=== PATIENT | female | born 1970 | race Caucasian/White ===

== ENCOUNTER 2019-02-13 01:54 | Inpatient (IN) | payer MEDICAID ==
[2019-02-13] VITALS (7 sets, daily range): BP systolic 92–115; BP diastolic 55–87
[~2019-02-13] VITALS: Ht 157.5 cm; Wt 71.5 kg
[2019-02-13 02:55] LABS: BASOPHILS % (AUTO) 0.5 % (0-1); EOSINOPHILS % (AUTO) 0.1 % (0-6); HEMATOCRIT 28.8 % (35.0-45.0); HEMOGLOBIN 9.6 g/dl (12.0-16.0); LYMPHOCYTES # (AUTO) 1.7 X10'3 (1.1-4.8); LYMPHOCYTES % (AUTO) 23.8 % (21-51); MEAN CORPUSCULAR HEMOGLOBIN 30.6 PG (27.0-31.0); MEAN CORPUSCULAR HGB CONC 33.3 g/dL (33.0-36.5); MEAN CORPUSCULAR VOLUME 91.9 FL (78-98); MEAN PLATELET VOLUME 7.9 FL (7.4-10.4); MONOCYTES # (AUTO) 0.6 X10'3 (0-0.9); NEUTROPHILS # (AUTO) 4.9 X10'3 (1.8-7.7); NEUTROPHILS % (AUTO) 67.6 % (42-75); PLATELET COUNT 194 X10'3 (140-440); RED BLOOD COUNT 3.13 X10'6 (4.20-5.60); RED CELL DISTRIBUTION WIDTH 17.6 % (11.5-14.5); WHITE BLOOD COUNT 7.3 X10'3 (4.5-11.0)
--- NOTE | 2019-02-13 03:08 | NUR ---
EKG COMPLETED, LABS DRAWN, PT IS A&OX4 AND COOPERATIVE. PT REPORTS USING METH LAST ON FRIDAY. DENIES ANY IV DRUG USE. DRINKS ETOH DAILY.
[2019-02-13 03:09] LABS: ALANINE AMINOTRANSFERASE 32 U/L (12-78); ALBUMIN 2.5 G/DL (3.4-5.0); ALBUMIN/GLOBULIN RATIO 0.9 (1.1-1.5); ALKALINE PHOSPHATASE 98 IU/L (46-116); ANION GAP 10 (8-16); ASPARTATE AMINO TRANSFERASE 43 U/L (10-37); BILIRUBIN,TOTAL 2.1 MG/DL (0.1-1.0); BLOOD UREA NITROGEN 32 MG/DL (7-18); BUN/CREATININE RATIO 27.6 (6.6-38.0); CALCIUM 7.7 MG/DL (8.5-10.1); CHLORIDE 98 MMOL/L (99-107); CREATININE 1.16 MG/DL (0.40-0.90); GLUCOSE 86 MG/DL (70-104); POTASSIUM 3.8 MMOL/L (3.5-5.1); SODIUM 133 MMOL/L (135-145); TOTAL CARBON DIOXIDE 25.2 MMOL/L (24-32); TOTAL PROTEIN 5.4 G/DL (6.4-8.2); eGFR 50 ML/MIN
[2019-02-13] MEDS ORDERED: pantoprazole 40MG/NS 100ML BAG 100 ML IV SCH ×2 (03:10→06:00)
[2019-02-13 03:30] LABS: INR 1.5 INR; PARTIAL THROMBOPLASTIN TIME 30 SECONDS (22-32); PROTHROMBIN TIME 14.5 SECONDS (9.0-12.0)
[2019-02-13] MEDS ORDERED: LORA10TA7 (03:31)
[2019-02-13] MEDS ORDERED: PANT20TA3 PO (03:31)
[2019-02-13] MEDS ORDERED: LISI-600 (03:31)
[2019-02-13] MEDS ORDERED: ALBU17AE26 (03:32)
[2019-02-13] MEDS ORDERED: magnesium hydroxide 30ml (MOM) UD suspension PO PRN (04:00)
[2019-02-13] MEDS ORDERED: acetaminophen 325mg tablet PO PRN ×2 (04:00)
[2019-02-13] MEDS ORDERED: mag hydrox/Alum hydrox/simeth 30ml oral suspension PO PRN (04:00)
[2019-02-13] MEDS ORDERED: potassium Cl 20 mEq SR tablet PO PRN ×2 (04:00)
[2019-02-13] MEDS ORDERED: ondansetron/PF 4mg/2ml inj IV PRN (04:00)
[2019-02-13] MEDS ORDERED: magnesium Cl slow-release 64mg tablet PO PRN (04:00)
[2019-02-13] MEDS ORDERED: magnesium 2GM in 50ml NS 50 ML IV PRN (04:00)
[2019-02-13] MEDS ORDERED: magnesium 4gm in 100ml NS 100 ML IV PRN (04:00)
[2019-02-13] MEDS ORDERED: potassium Cl 40MEQ/NS 500ml 500 ML IV PRN ×2 (04:00)
--- NOTE | 2019-02-13 04:08 | NUR ---
PT SLEEPING. STABLE VS. AWAITING HOSPITALIST. PROTONIX GTT INFUSING.
[2019-02-13] MEDS ORDERED: thiamine inj. 100 MG in normal saline 100ml IV soln 100 ML IV ONE (04:35)
[2019-02-13] MEDS ORDERED: LORazepam 2 mg/ml vial IV PRN (04:35)
[2019-02-13] MEDS ORDERED: LORazepam 1 MG tablet PO PRN (04:35)
[2019-02-13] MEDS ORDERED: thiamine 100mg/ml 2ml inj. IV ONE (04:50)
[2019-02-13] MEDS: pantoprazole 40MG/NS 100ML BAG 100 ML IV SCH ×4 (04:51→18:52)
--- NOTE | 2019-02-13 06:30 | NUR ---
PATIENT RECEIVED ON A HOSPITAL BED AWAKE,NO REPORTED DISCOMFORT,ASSISTED TO [facility]SC COLLECTED URINE AND SENT TO THE LAB.
[2019-02-13 06:46] LABS: CLARITY,URINE CLEAR (Clear); COLOR,URINE YELLOW (Yellow); GLUCOSE, URINE NEGATIVE (Neg); KETONES,URINE NEGATIVE (Neg); LEUKOCYTE ESTERASE ,URINE NEGATIVE (Neg); NITRITES, URINE NEGATIVE (Neg); OCCULT BLOOD,URINE TRACE-INTACT (Neg); PH,URINE 5.5 (4.8-8.0); PROTEIN,URINE NEGATIVE (Neg); UROBILINOGEN,URINE 0.2 E.U/dL (0.2-1.0)
[2019-02-13 06:48] LABS: UA COLLECTION TYPE CLN CATCH MIDSTREAM
[2019-02-13 06:56] LABS: BACTERIA,URINE FEW /HPF (Neg); MUCUS STRANDS NONE SEEN /LPF (Neg); RBC,URINE 0-2 /HPF (0-2); RENAL CELLS, URINE FEW /HPF; SQUAMOUS EPITHELIAL CELL,UR MODERATE /LPF (FEW); WBC,URINE 0-4 /HPF (0-4)
--- NOTE | 2019-02-13 07:55 | NUR ---
PER DR. COREAS,DR MATHEWS TO DO EKG TODAY.
[2019-02-13] MEDS: K and/or MAG REPLACEMENT MC SCH (08:00)
--- NOTE | 2019-02-13 08:14 | NUR ---
WENDYANA BAG N/A,CALLED JUSTICE AT PHARMACY.
--- NOTE | 2019-02-13 09:04 | NUR ---
STILL AWAITING FOR BANANA BAG,PHARMACY CALLED SPOKE TO BRYCE.
[2019-02-13 09:07] LABS: BASOPHILS # (AUTO) 0.1 X10'3 (0-0.2); BASOPHILS % (AUTO) 0.6 % (0-1); EOSINOPHILS % (AUTO) 0.4 % (0-6); HEMATOCRIT 25.8 % (35.0-45.0); HEMOGLOBIN 8.9 g/dl (12.0-16.0); LYMPHOCYTES # (AUTO) 1.7 X10'3 (1.1-4.8); LYMPHOCYTES % (AUTO) 17.9 % (21-51); MEAN CORPUSCULAR HEMOGLOBIN 31.7 PG (27.0-31.0); MEAN CORPUSCULAR HGB CONC 34.6 g/dL (33.0-36.5); MEAN CORPUSCULAR VOLUME 91.5 FL (78-98); MONOCYTES # (AUTO) 0.9 X10'3 (0-0.9); NEUTROPHILS % (AUTO) 72.1 % (42-75); PLATELET COUNT 181 X10'3 (140-440); RED BLOOD COUNT 2.82 X10'6 (4.20-5.60); RED CELL DISTRIBUTION WIDTH 18.3 % (11.5-14.5); WHITE BLOOD COUNT 9.8 X10'3 (4.5-11.0)
[2019-02-13 09:11] LABS: ALANINE AMINOTRANSFERASE 28 U/L (12-78); ALBUMIN 2.2 G/DL (3.4-5.0); ALBUMIN/GLOBULIN RATIO 0.8 (1.1-1.5); ALKALINE PHOSPHATASE 90 IU/L (46-116); ANION GAP 9 (8-16); ASPARTATE AMINO TRANSFERASE 37 U/L (10-37); BILIRUBIN,TOTAL 2.2 MG/DL (0.1-1.0); BLOOD UREA NITROGEN 32 MG/DL (7-18); BUN/CREATININE RATIO 28.3 (6.6-38.0); CALCIUM 7.5 MG/DL (8.5-10.1); CHLORIDE 100 MMOL/L (99-107); CREATININE 1.13 MG/DL (0.40-0.90); GLUCOSE 82 MG/DL (70-104); POTASSIUM 3.7 MMOL/L (3.5-5.1); SODIUM 134 MMOL/L (135-145); TOTAL CARBON DIOXIDE 25.5 MMOL/L (24-32); TOTAL PROTEIN 4.8 G/DL (6.4-8.2); eGFR 51 ML/MIN
[2019-02-13] MEDS: folic acid inj. 2 MG, thiamine inj. 100 MG, MVI, adult No.4 with vit. K 10 ML in dextro... IV SCH ×4 (09:13)
--- NOTE | 2019-02-13 09:32 | NUR ---
PATIENT TO GI LAB.
[2019-02-13] MEDS ORDERED: fentaNYL/PF 50MCG/1 ML 2ML syringe ONE (10:01)
[2019-02-13] MEDS ORDERED: MIDAZolam 5mg/5ml vial ONE (10:01)
[2019-02-13] MEDS ORDERED: LIDOcaine Viscous 15ml cup ONE (10:01)
--- NOTE | 2019-02-13 12:26 | NUR ---
BACK FROM GI LAB. MICHAELA AKERS GI LAB NURSE, STATES PT HAD A BM BEFORE PROCEDURE. BM 500CC BRIGHT RED BLOOD. NO CLOTS.
--- NOTE | 2019-02-13 12:27 | NUR ---
PT IN STABLE CONDITION. PT DROWY
--- NOTE | 2019-02-13 16:10 | NUR ---
ate 100% of clear liquid diet
--- NOTE | 2019-02-13 17:55 | NUR ---
Dr. Griggs notified about patient's draining wounds on her right and left guevara and that we did wound culture. He said to wait for the wound culture result first. I let him know that patient is not on any antibiotic and that she has history of MRSA wound Addendum: 02/13/19 at 1839 by Kt Orozco RN Wound pictures done with patient's permission. Pictures placed in the chart
--- NOTE | 2019-02-13 18:30 | NUR ---
Patient in room [facility] 345. I have received report from Kt kerr and had the opportunity to ask questions and assume patient care.
--- NOTE | 2019-02-13 18:38 | NUR ---
Problems reprioritized. Patient report given, questions answered & plan of care reviewed with Bebo AKERS.
[2019-02-14] VITALS (29 sets, daily range): BP systolic 98–160; BP diastolic 33–96
[2019-02-14] MEDS: pantoprazole 40MG/NS 100ML BAG 100 ML IV SCH ×5 (00:05→21:39)
[2019-02-14] MEDS: HYDROcodone/acetaminophen 5mg/325mg tablet PO PRN ×2 (00:05→21:13)
--- NOTE | 2019-02-14 06:30 | NUR ---
Problems reprioritized. Patient report given, questions answered & plan of care reviewed with Kt AKERS.
--- NOTE | 2019-02-14 06:46 | NUR ---
Patient in room [facility] 345. I have received report from Bebo AKERS and had the opportunity to ask questions and assume patient care.
[2019-02-14] MEDS: folic acid inj. 2 MG, thiamine inj. 100 MG, MVI, adult No.4 with vit. K 10 ML in dextro... IV SCH ×4 (07:23)
[2019-02-14 07:29] LABS: BASOPHILS % (AUTO) 0.5 % (0-1); EOSINOPHILS % (AUTO) 0.4 % (0-6); HEMATOCRIT 22.2 % (35.0-45.0); HEMOGLOBIN 7.5 g/dl (12.0-16.0); LYMPHOCYTES # (AUTO) 1.4 X10'3 (1.1-4.8); LYMPHOCYTES % (AUTO) 19.3 % (21-51); MEAN CORPUSCULAR HEMOGLOBIN 31.5 PG (27.0-31.0); MEAN CORPUSCULAR HGB CONC 33.9 g/dL (33.0-36.5); MEAN PLATELET VOLUME 8.5 FL (7.4-10.4); MONOCYTES # (AUTO) 0.6 X10'3 (0-0.9); MONOCYTES % (AUTO) 8.1 % (2-12); NEUTROPHILS # (AUTO) 5.1 X10'3 (1.8-7.7); NEUTROPHILS % (AUTO) 71.7 % (42-75); PLATELET COUNT 148 X10'3 (140-440); RED BLOOD COUNT 2.39 X10'6 (4.20-5.60); RED CELL DISTRIBUTION WIDTH 18.2 % (11.5-14.5); WHITE BLOOD COUNT 7.1 X10'3 (4.5-11.0)
[2019-02-14 07:41] LABS: ALANINE AMINOTRANSFERASE 23 U/L (12-78); ALBUMIN/GLOBULIN RATIO 0.7 (1.1-1.5); ALKALINE PHOSPHATASE 82 IU/L (46-116); ANION GAP 8 (8-16); ASPARTATE AMINO TRANSFERASE 37 U/L (10-37); BILIRUBIN,TOTAL 1.9 MG/DL (0.1-1.0); BLOOD UREA NITROGEN 31 MG/DL (7-18); CALCIUM 7.3 MG/DL (8.5-10.1); CHLORIDE 101 MMOL/L (99-107); CREATININE 0.97 MG/DL (0.40-0.90); GLUCOSE 81 MG/DL (70-104); MAGNESIUM 1.3 MG/DL (1.5-2.4); PHOSPHORUS 2.5 MG/DL (2.3-4.5); POTASSIUM 3.7 MMOL/L (3.5-5.1); SODIUM 132 MMOL/L (135-145); TOTAL CARBON DIOXIDE 23.1 MMOL/L (24-32); TOTAL PROTEIN 4.8 G/DL (6.4-8.2); eGFR 61 ML/MIN
[2019-02-14] MEDS: K and/or MAG REPLACEMENT MC SCH (08:00)
--- NOTE | 2019-02-14 10:21 | NUR ---
Paged Dr. Griggs regarding Hgb of 7.5 hct of 22.2 this am and 1 episode of bloody stool this am.
--- NOTE | 2019-02-14 11:05 | NUR ---
Dr. Griggs notified about the Hgb of 6.8. Blood transfusion 2 units of PRBC was ordered
[2019-02-14 11:20] LABS: MEAN CORPUSCULAR HEMOGLOBIN 30.8 PG (27.0-31.0); MEAN CORPUSCULAR HGB CONC 33.1 g/dL (33.0-36.5); MEAN CORPUSCULAR VOLUME 92.9 FL (78-98); MEAN PLATELET VOLUME 8.1 FL (7.4-10.4); PLATELET COUNT 153 X10'3 (140-440); RED CELL DISTRIBUTION WIDTH 18.3 % (11.5-14.5)
[2019-02-14 11:35] LABS: HEMATOCRIT 20.4 % (35.0-45.0); HEMOGLOBIN 6.8 g/dl (12.0-16.0)
--- NOTE | 2019-02-14 13:04 | NUR ---
Patients blood started per protocol and MD orders. Agnieszka from GI Lab is here to take patient down for EGD Blood was just started and is running at 70ml's/hr for the first 15 minutes monitoring for reaction. Agnieszka is taking over watching for reaction and will increase rate after 1st 15 min. Kt AKERS is aware.
--- NOTE | 2019-02-14 13:09 | NUR ---
Patient just left her room, went to GI lab. technical support analyst called to let her know
[2019-02-14] MEDS ORDERED: MIDAZolam 5mg/5ml vial ONE (13:27)
[2019-02-14] MEDS ORDERED: fentaNYL/PF 50MCG/1 ML 2ML syringe ONE (13:27)
[2019-02-14] MEDS ORDERED: LIDOcaine Viscous 15ml cup ONE (13:27)
--- NOTE | 2019-02-14 16:50 | NUR ---
Patient just arrived to the room s/p EGD. Patient is drowsy, able to open eyes on command when she arrived, patient hooked to vital sign machine for post-procedure vital signs.
--- NOTE | 2019-02-14 18:47 | NUR ---
Problems reprioritized. Patient report given, questions answered & plan of care reviewed with Laura AKERS.
[2019-02-14 19:57] LABS: HEMOGLOBIN 8.7 g/dl (12.0-16.0); MEAN CORPUSCULAR HEMOGLOBIN 30.5 PG (27.0-31.0); MEAN CORPUSCULAR HGB CONC 33.5 g/dL (33.0-36.5); MEAN CORPUSCULAR VOLUME 91.2 FL (78-98); MEAN PLATELET VOLUME 8.5 FL (7.4-10.4); PLATELET COUNT 141 X10'3 (140-440); RED BLOOD COUNT 2.85 X10'6 (4.20-5.60); RED CELL DISTRIBUTION WIDTH 17.9 % (11.5-14.5); WHITE BLOOD COUNT 6.5 X10'3 (4.5-11.0)
--- NOTE | 2019-02-14 22:07 | NUR ---
Patient in room [facility] 345. I have received report from DELPHINE Meraz and had the opportunity to ask questions and assume patient care. Addendum: 02/14/19 at 2209 by Laura Wong RN Amended: Links added.
[2019-02-15 00:09] VITALS: BP 122/81
[2019-02-15] MEDS: pantoprazole 40MG/NS 100ML BAG 100 ML IV SCH ×5 (02:13→20:12)
[2019-02-15] MEDS ORDERED: morphine 2 MG/ML inj. syringe IV ONE (04:05)
[2019-02-15] MEDS ORDERED: nitroGLYCERIN 0.4mg SUBLingual tab SL PRN (04:05)
[2019-02-15 04:15] VITALS: BP 130/91
[2019-02-15 05:21] LABS: BASOPHILS % (AUTO) 0.3 % (0-1); EOSINOPHILS % (AUTO) 0.1 % (0-6); HEMATOCRIT 28.2 % (35.0-45.0); HEMOGLOBIN 9.5 g/dl (12.0-16.0); LYMPHOCYTES # (AUTO) 0.7 X10'3 (1.1-4.8); LYMPHOCYTES % (AUTO) 8.6 % (21-51); MEAN CORPUSCULAR HGB CONC 33.8 g/dL (33.0-36.5); MEAN CORPUSCULAR VOLUME 91.8 FL (78-98); MEAN PLATELET VOLUME 8.6 FL (7.4-10.4); MONOCYTES # (AUTO) 0.7 X10'3 (0-0.9); MONOCYTES % (AUTO) 9.5 % (2-12); NEUTROPHILS # (AUTO) 6.2 X10'3 (1.8-7.7); NEUTROPHILS % (AUTO) 81.5 % (42-75); PLATELET COUNT 125 X10'3 (140-440); RED BLOOD COUNT 3.08 X10'6 (4.20-5.60); RED CELL DISTRIBUTION WIDTH 16.7 % (11.5-14.5); WHITE BLOOD COUNT 7.7 X10'3 (4.5-11.0)
[2019-02-15 05:40] LABS: ALANINE AMINOTRANSFERASE 26 U/L (12-78); ALBUMIN 1.9 G/DL (3.4-5.0); ALBUMIN/GLOBULIN RATIO 0.7 (1.1-1.5); ALKALINE PHOSPHATASE 81 IU/L (46-116); ANION GAP 12 (8-16); ASPARTATE AMINO TRANSFERASE 44 U/L (10-37); BILIRUBIN,TOTAL 2.3 MG/DL (0.1-1.0); BLOOD UREA NITROGEN 19 MG/DL (7-18); BUN/CREATININE RATIO 21.6 (6.6-38.0); CALCIUM 7.4 MG/DL (8.5-10.1); CHLORIDE 98 MMOL/L (99-107); CREATININE 0.88 MG/DL (0.40-0.90); GLUCOSE 87 MG/DL (70-104); POTASSIUM 3.5 MMOL/L (3.5-5.1); SODIUM 131 MMOL/L (135-145); TOTAL CARBON DIOXIDE 21.4 MMOL/L (24-32); TOTAL PROTEIN 4.5 G/DL (6.4-8.2); eGFR 69 ML/MIN
[2019-02-15 05:44] LABS: MAGNESIUM 1.2 MG/DL (1.5-2.4); PHOSPHORUS 2.3 MG/DL (2.3-4.5); TROPONIN I < 0.04 NG/ML (0.0-0.05)
--- NOTE | 2019-02-15 06:10 | NUR ---
Patient in room [facility] 345. I have received report from DELPHINE García and had the opportunity to ask questions and assume patient care. Patient resting comfortably at this time. Call light and items of frequent use in reach of patient.
--- NOTE | 2019-02-15 06:15 | NUR ---
Problems reprioritized. Patient report given, questions answered & plan of care reviewed with DELPHINE Maurer. Addendum: 02/15/19 at 0616 by Laura Wong RN Amended: Links added.
[2019-02-15 08:00] VITALS: BP_SYST 105; BP_SYST 114; BP_SYST 97; BP_DIAS 67; BP_DIAS 72; BP_DIAS 77; BP_DIAS 78
[2019-02-15] MEDS: K and/or MAG REPLACEMENT MC SCH (08:00)
[2019-02-15] MEDS: folic acid inj. 2 MG, thiamine inj. 100 MG, MVI, adult No.4 with vit. K 10 ML in dextro... IV SCH ×4 (08:38)
[2019-02-15 11:00] VITALS: BP 109/76
[2019-02-15] MEDS: HYDROcodone/acetaminophen 5mg/325mg tablet PO PRN ×3 (13:21→21:16)
[2019-02-15] MEDS: piperacillin/tazo 3.375gm/50ml 50 ML IV SCH ×2 (17:10→23:19)
--- NOTE | 2019-02-15 18:30 | NUR ---
Problems reprioritized. Patient report given, questions answered & plan of care reviewed with DELPHINE García.
--- NOTE | 2019-02-15 18:33 | NUR ---
Patient in room [facility] 345. I have received report from DELPHINE Maurer and had the opportunity to ask questions and assume patient care. Addendum: 02/15/19 at 1834 by Laura Wong RN Amended: Links added.
[2019-02-15 19:18] LABS: HEMATOCRIT 23.7 % (35.0-45.0); HEMOGLOBIN 8.1 g/dl (12.0-16.0); MEAN CORPUSCULAR HEMOGLOBIN 31.4 PG (27.0-31.0); MEAN CORPUSCULAR HGB CONC 34.3 g/dL (33.0-36.5); MEAN CORPUSCULAR VOLUME 91.6 FL (78-98); MEAN PLATELET VOLUME 8.7 FL (7.4-10.4); PLATELET COUNT 109 X10'3 (140-440); RED BLOOD COUNT 2.59 X10'6 (4.20-5.60); RED CELL DISTRIBUTION WIDTH 16.5 % (11.5-14.5); WHITE BLOOD COUNT 8.2 X10'3 (4.5-11.0)
[2019-02-15 20:00] VITALS: BP_SYST 100; BP_SYST 116; BP_SYST 95; BP_DIAS 59; BP_DIAS 69; BP_DIAS 80
[2019-02-15] MEDS ORDERED: piperacillin/tazo 3.375gm/50ml 50 ML IV SCH (20:00)
[2019-02-16] VITALS (8 sets, daily range): BP systolic 82–100; BP diastolic 38–68
[2019-02-16] MEDS: pantoprazole 40MG/NS 100ML BAG 100 ML IV SCH ×5 (02:14→21:42)
[2019-02-16 05:05] LABS: BASOPHILS % (AUTO) 0.2 % (0-1); EOSINOPHILS % (AUTO) 0.2 % (0-6); HEMATOCRIT 24.6 % (35.0-45.0); HEMOGLOBIN 8.4 g/dl (12.0-16.0); LYMPHOCYTES # (AUTO) 0.7 X10'3 (1.1-4.8); LYMPHOCYTES % (AUTO) 6.5 % (21-51); MEAN CORPUSCULAR HEMOGLOBIN 31.7 PG (27.0-31.0); MEAN CORPUSCULAR VOLUME 93.3 FL (78-98); MEAN PLATELET VOLUME 9.2 FL (7.4-10.4); MONOCYTES # (AUTO) 0.7 X10'3 (0-0.9); MONOCYTES % (AUTO) 6.5 % (2-12); NEUTROPHILS # (AUTO) 9.4 X10'3 (1.8-7.7); NEUTROPHILS % (AUTO) 86.6 % (42-75); PLATELET COUNT 127 X10'3 (140-440); RED BLOOD COUNT 2.64 X10'6 (4.20-5.60); RED CELL DISTRIBUTION WIDTH 16.8 % (11.5-14.5); WHITE BLOOD COUNT 10.9 X10'3 (4.5-11.0)
[2019-02-16 05:15] LABS: ALANINE AMINOTRANSFERASE 27 U/L (12-78); ALBUMIN 1.8 G/DL (3.4-5.0); ALBUMIN/GLOBULIN RATIO 0.7 (1.1-1.5); ALKALINE PHOSPHATASE 79 IU/L (46-116); ANION GAP 7 (8-16); ASPARTATE AMINO TRANSFERASE 47 U/L (10-37); BILIRUBIN,TOTAL 1.5 MG/DL (0.1-1.0); BLOOD UREA NITROGEN 16 MG/DL (7-18); BUN/CREATININE RATIO 17.6 (6.6-38.0); CALCIUM 6.8 MG/DL (8.5-10.1); CHLORIDE 100 MMOL/L (99-107); CREATININE 0.91 MG/DL (0.40-0.90); GLUCOSE 85 MG/DL (70-104); MAGNESIUM 1.1 MG/DL (1.5-2.4); PHOSPHORUS 2.2 MG/DL (2.3-4.5); POTASSIUM 3.5 MMOL/L (3.5-5.1); SODIUM 129 MMOL/L (135-145); TOTAL CARBON DIOXIDE 22.5 MMOL/L (24-32); TOTAL PROTEIN 4.3 G/DL (6.4-8.2); eGFR 66 ML/MIN
--- NOTE | 2019-02-16 06:20 | NUR ---
Patient in room [facility] 345. I have received report from DELPHINE García and had the opportunity to ask questions and assume patient care.
--- NOTE | 2019-02-16 06:22 | NUR ---
Problems reprioritized. Patient report given, questions answered & plan of care reviewed with DELPHINE Maurer. Addendum: 02/16/19 at 0622 by Laura Wong RN Amended: Links added.
[2019-02-16] MEDS ORDERED: iohexol 300mg/ml 100ml inj. ONE (07:36)
[2019-02-16] MEDS: piperacillin/tazo 3.375gm/50ml 50 ML IV SCH ×2 (07:37→17:38)
[2019-02-16] MEDS: HYDROcodone/acetaminophen 5mg/325mg tablet PO PRN ×2 (07:42→14:17)
[2019-02-16] MEDS: K and/or MAG REPLACEMENT MC SCH (08:00)
[2019-02-16] MEDS ORDERED: potassium Cl 20 mEq SR tablet PO PRN ×2 (10:40)
[2019-02-16] MEDS: magnesium Cl slow-release 64mg tablet PO PRN ×2 (10:50→18:45)
[2019-02-16] MEDS: folic acid inj. 2 MG, thiamine inj. 100 MG, MVI, adult No.4 with vit. K 10 ML in dextro... IV SCH ×4 (11:51)
[2019-02-16 16:46] LABS: MEAN CORPUSCULAR HEMOGLOBIN 31.4 PG (27.0-31.0); MEAN CORPUSCULAR HGB CONC 33.6 g/dL (33.0-36.5); MEAN CORPUSCULAR VOLUME 93.2 FL (78-98); MEAN PLATELET VOLUME 9.5 FL (7.4-10.4); PLATELET COUNT 115 X10'3 (140-440); RED BLOOD COUNT 2.04 X10'6 (4.20-5.60); RED CELL DISTRIBUTION WIDTH 16.4 % (11.5-14.5); WHITE BLOOD COUNT 12.9 X10'3 (4.5-11.0)
[2019-02-16 16:50] LABS: HEMOGLOBIN 6.4 g/dl (12.0-16.0)
[2019-02-16] MEDS ORDERED: PEG 3350/Na sulf,bicarb,Cl/KCl oral sol 4 liter bottle PO ONE (17:40)
--- NOTE | 2019-02-16 18:30 | NUR ---
Problems reprioritized. Patient report given, questions answered & plan of care reviewed with DELPHINE García. Patient starting golytely prep and resting comfortably at this time. Call light and items of frequent use in reach of patient.
--- NOTE | 2019-02-16 23:29 | NUR ---
Patient in room [facility] 355. I have received report from DELPHINE Diaz and had the opportunity to ask questions and assume patient care. Addendum: 02/16/19 at 2330 by Laura Wong RN Amended: Links added.
[2019-02-17] VITALS (15 sets, daily range): BP systolic 90–140; BP diastolic 50–90
[2019-02-17] MEDS: piperacillin/tazo 3.375gm/50ml 50 ML IV SCH ×4 (00:04→23:58)
[2019-02-17] MEDS: pantoprazole 40MG/NS 100ML BAG 100 ML IV SCH ×5 (02:35→22:11)
[2019-02-17] MEDS ORDERED: morphine 2 MG/ML inj. syringe IV ONE (03:10)
--- NOTE | 2019-02-17 04:32 | NUR ---
timed lab draw for 02/16 @2330 so lab could draw pt d/t pt being edematous and a very hard stick. Lab retimed draw and 2330 h and h was not drawn d/t pt being a hard stick.
[2019-02-17 04:45] LABS: ALANINE AMINOTRANSFERASE 21 U/L (12-78); ALBUMIN 1.4 G/DL (3.4-5.0); ALBUMIN/GLOBULIN RATIO 0.7 (1.1-1.5); ALKALINE PHOSPHATASE 66 IU/L (46-116); ANION GAP 9 (8-16); ASPARTATE AMINO TRANSFERASE 40 U/L (10-37); BLOOD UREA NITROGEN 14 MG/DL (7-18); BUN/CREATININE RATIO 20.6 (6.6-38.0); CALCIUM 6.5 MG/DL (8.5-10.1); CHLORIDE 102 MMOL/L (99-107); CREATININE 0.68 MG/DL (0.40-0.90); GLUCOSE 93 MG/DL (70-104); MAGNESIUM 1.2 MG/DL (1.5-2.4); SODIUM 132 MMOL/L (135-145); TOTAL CARBON DIOXIDE 21.1 MMOL/L (24-32); TOTAL PROTEIN 3.5 G/DL (6.4-8.2); eGFR > 90 ML/MIN
[2019-02-17] MEDS ORDERED: potassium Cl 40MEQ/NS 500ml 500 ML IV PRN (05:00)
[2019-02-17] MEDS ORDERED: potassium Cl 20 mEq SR tablet PO PRN ×2 (05:00)
[2019-02-17] MEDS ORDERED: magnesium 2GM in 50ml NS 50 ML IV PRN (05:00)
[2019-02-17] MEDS: Chloraseptic (Phenol) Spray 177ml MM PRN (05:11)
[2019-02-17] MEDS: potassium Cl 40MEQ/NS 500ml 500 ML IV PRN ×2 (05:25→10:01)
--- NOTE | 2019-02-17 06:21 | NUR ---
Problems reprioritized. Patient report given, questions answered & plan of care reviewed with DELPHINE Hunt. Addendum: 02/17/19 at 0621 by Laura Wong RN Amended: Links added.
[2019-02-17 07:14] LABS: BASOPHILS % (AUTO) 0.2 % (0-1); EOSINOPHILS % (AUTO) 0.2 % (0-6); HEMOGLOBIN 7.3 g/dl (12.0-16.0); LYMPHOCYTES # (AUTO) 0.9 X10'3 (1.1-4.8); LYMPHOCYTES % (AUTO) 8.5 % (21-51); MONOCYTES # (AUTO) 0.6 X10'3 (0-0.9); MONOCYTES % (AUTO) 5.6 % (2-12); NEUTROPHILS # (AUTO) 8.8 X10'3 (1.8-7.7); NEUTROPHILS % (AUTO) 85.5 % (42-75)
[2019-02-17 07:26] LABS: RED BLOOD COUNT 2.39 X10'6 (4.20-5.60); WHITE BLOOD COUNT 10.2 X10'3 (4.5-11.0)
[2019-02-17 07:27] LABS: MEAN CORPUSCULAR HEMOGLOBIN 30.7 PG (27.0-31.0); MEAN CORPUSCULAR VOLUME 87.8 FL (78-98)
[2019-02-17 07:28] LABS: MEAN PLATELET VOLUME 9.2 FL (7.4-10.4); PLATELET COUNT 103 X10'3 (140-440)
[2019-02-17] MEDS: K and/or MAG REPLACEMENT MC SCH (08:00)
--- NOTE | 2019-02-17 09:38 | NUR ---
Extended PIV inserted to the left upper arm cephalic vein x 1 attempt using ultrasound. Irish well Addendum: 02/17/19 at 0943 by Samaria Logan RN Amended: Links added.
[2019-02-17] MEDS: folic acid inj. 2 MG, thiamine inj. 100 MG, MVI, adult No.4 with vit. K 10 ML in dextro... IV SCH ×4 (10:40)
[2019-02-17 11:00] LABS: HEMATOCRIT 23.1 % (35.0-45.0); HEMOGLOBIN 7.7 g/dl (12.0-16.0); MEAN CORPUSCULAR HGB CONC 33.6 g/dL (33.0-36.5); MEAN CORPUSCULAR VOLUME 89.3 FL (78-98); MEAN PLATELET VOLUME 9.3 FL (7.4-10.4); PLATELET COUNT 106 X10'3 (140-440); RED BLOOD COUNT 2.59 X10'6 (4.20-5.60); RED CELL DISTRIBUTION WIDTH 18.1 % (11.5-14.5); WHITE BLOOD COUNT 14.7 X10'3 (4.5-11.0)
[2019-02-17 16:12] LABS: BASOPHILS % (AUTO) 0.2 % (0-1); EOSINOPHILS % (AUTO) 0 % (0-6); HEMATOCRIT 23.9 % (35.0-45.0); HEMOGLOBIN 8.1 g/dl (12.0-16.0); LYMPHOCYTES # (AUTO) 0.9 X10'3 (1.1-4.8); LYMPHOCYTES % (AUTO) 5.3 % (21-51); MEAN CORPUSCULAR HEMOGLOBIN 30.1 PG (27.0-31.0); MEAN CORPUSCULAR HGB CONC 33.9 g/dL (33.0-36.5); MEAN CORPUSCULAR VOLUME 88.9 FL (78-98); MEAN PLATELET VOLUME 9.6 FL (7.4-10.4); MONOCYTES # (AUTO) 0.9 X10'3 (0-0.9); NEUTROPHILS # (AUTO) 15.3 X10'3 (1.8-7.7); NEUTROPHILS % (AUTO) 89.5 % (42-75); PLATELET COUNT 113 X10'3 (140-440); RED BLOOD COUNT 2.69 X10'6 (4.20-5.60); RED CELL DISTRIBUTION WIDTH 18.5 % (11.5-14.5); WHITE BLOOD COUNT 17.1 X10'3 (4.5-11.0)
--- NOTE | 2019-02-17 16:15 | NUR ---
Patient taken to GI lab via .
[2019-02-17] MEDS ORDERED: MIDAZolam 5mg/5ml vial ONE (16:45)
[2019-02-17] MEDS ORDERED: LIDOcaine Viscous 15ml cup ONE (16:45)
[2019-02-17] MEDS ORDERED: fentaNYL/PF 50MCG/1 ML 2ML syringe ONE (16:45)
[2019-02-17] MEDS ORDERED: diphenhydrAMINE 50 mg/ml inj ONE (17:05)
[2019-02-17] MEDS ORDERED: epiNEPHrine 0.1mg/ml 10ml syringe ONE (17:53)
--- NOTE | 2019-02-17 18:33 | NUR ---
Report to DELPHINE Hutchison.
--- NOTE | 2019-02-17 18:50 | NUR ---
Patient return from GI lab. Patient oxygen desated down to 70's in room air. 2L n/c applied patient sats went back up to 95% 2L. VSS. will continue with care.
[2019-02-17] MEDS: normal saline 1000ml 1,000 ML IV SCH (19:40)
[2019-02-17] MEDS: lactobacillus rhamnosus 10,000 MMU CELLS/CAPSULE PO SCH (20:00)
[2019-02-17 20:31] LABS: BASOPHILS % (AUTO) 0.3 % (0-1); EOSINOPHILS % (AUTO) 0.1 % (0-6); HEMOGLOBIN 7.9 g/dl (12.0-16.0); LYMPHOCYTES # (AUTO) 0.7 X10'3 (1.1-4.8); LYMPHOCYTES % (AUTO) 4.6 % (21-51); MEAN CORPUSCULAR HEMOGLOBIN 30.7 PG (27.0-31.0); MEAN CORPUSCULAR HGB CONC 34.4 g/dL (33.0-36.5); MEAN CORPUSCULAR VOLUME 89.4 FL (78-98); MEAN PLATELET VOLUME 9.5 FL (7.4-10.4); MONOCYTES # (AUTO) 0.6 X10'3 (0-0.9); MONOCYTES % (AUTO) 4.1 % (2-12); NEUTROPHILS # (AUTO) 13.1 X10'3 (1.8-7.7); NEUTROPHILS % (AUTO) 90.9 % (42-75); PLATELET COUNT 111 X10'3 (140-440); RED BLOOD COUNT 2.57 X10'6 (4.20-5.60); RED CELL DISTRIBUTION WIDTH 18.3 % (11.5-14.5); WHITE BLOOD COUNT 14.4 X10'3 (4.5-11.0)
--- NOTE | 2019-02-17 22:00 | NUR ---
Report given to CICU nurse Johnnie AKERS. All belongings and medications sent with patient.
--- NOTE | 2019-02-17 23:22 | NUR ---
Patient transferred to CICU from surgical. Patient A&OX3, very sleepy but responds appropriately. Vitals WNL. Mottling noted on lower extremities up to mid-thigh. aware.
[2019-02-18] VITALS (25 sets, daily range): BP systolic 85–133; BP diastolic 40–91
[2019-02-18 02:21] LABS: BASOPHILS % (AUTO) 0.1 % (0-1); EOSINOPHILS % (AUTO) 0 % (0-6); HEMATOCRIT 23.2 % (35.0-45.0); HEMOGLOBIN 7.7 g/dl (12.0-16.0); LYMPHOCYTES # (AUTO) 0.9 X10'3 (1.1-4.8); LYMPHOCYTES % (AUTO) 6.7 % (21-51); MEAN CORPUSCULAR HEMOGLOBIN 29.9 PG (27.0-31.0); MEAN CORPUSCULAR HGB CONC 33.3 g/dL (33.0-36.5); MEAN CORPUSCULAR VOLUME 89.9 FL (78-98); MEAN PLATELET VOLUME 9.2 FL (7.4-10.4); MONOCYTES # (AUTO) 0.5 X10'3 (0-0.9); MONOCYTES % (AUTO) 3.5 % (2-12); NEUTROPHILS # (AUTO) 11.6 X10'3 (1.8-7.7); NEUTROPHILS % (AUTO) 89.7 % (42-75); PLATELET COUNT 118 X10'3 (140-440); RED BLOOD COUNT 2.59 X10'6 (4.20-5.60)
[2019-02-18 02:23] LABS: ANISOCYTOSIS 2+; PLATELET ESTIMATE DECREASED
[2019-02-18 02:36] LABS: ALANINE AMINOTRANSFERASE 30 U/L (12-78); ALBUMIN 1.5 G/DL (3.4-5.0); ALBUMIN/GLOBULIN RATIO 0.6 (1.1-1.5); ALKALINE PHOSPHATASE 71 IU/L (46-116); ANION GAP 6 (8-16); ASPARTATE AMINO TRANSFERASE 47 U/L (10-37); BILIRUBIN,TOTAL 1.4 MG/DL (0.1-1.0); BLOOD UREA NITROGEN 9 MG/DL (7-18); BUN/CREATININE RATIO 12.5 (6.6-38.0); CALCIUM 6.8 MG/DL (8.5-10.1); CHLORIDE 105 MMOL/L (99-107); CREATININE 0.72 MG/DL (0.40-0.90); GLUCOSE 99 MG/DL (70-104); MAGNESIUM 1.2 MG/DL (1.5-2.4); PHOSPHORUS 2.4 MG/DL (2.3-4.5); POTASSIUM 3.5 MMOL/L (3.5-5.1); SODIUM 134 MMOL/L (135-145); TOTAL CARBON DIOXIDE 23.2 MMOL/L (24-32); TOTAL PROTEIN 4.1 G/DL (6.4-8.2); eGFR 86 ML/MIN
[2019-02-18 02:42] LABS: INR 1.1 INR; PARTIAL THROMBOPLASTIN TIME 32 SECONDS (22-32); PROTHROMBIN TIME 10.9 SECONDS (9.0-12.0)
[2019-02-18] MEDS: pantoprazole 40MG/NS 100ML BAG 100 ML IV SCH ×5 (03:40→21:17)
[2019-02-18] MEDS: HYDROcodone/acetaminophen 5mg/325mg tablet PO PRN (04:22)
[2019-02-18] MEDS: Chloraseptic (Phenol) Spray 177ml MM PRN (04:25)
--- NOTE | 2019-02-18 06:30 | NUR ---
Patient in room CICU 2011. I have received report from DELPHINE Blair and had the opportunity to ask questions and assume patient care.
[2019-02-18] MEDS: lactobacillus rhamnosus 10,000 MMU CELLS/CAPSULE PO SCH ×2 (07:32→19:14)
[2019-02-18] MEDS: piperacillin/tazo 3.375gm/50ml 50 ML IV SCH ×2 (07:42→15:43)
[2019-02-18] MEDS: K and/or MAG REPLACEMENT MC SCH (07:43)
[2019-02-18] MEDS: folic acid inj. 2 MG, thiamine inj. 100 MG, MVI, adult No.4 with vit. K 10 ML in dextro... IV SCH ×4 (08:00)
[2019-02-18 09:16] LABS: MEAN CORPUSCULAR HEMOGLOBIN 30.8 PG (27.0-31.0); MEAN CORPUSCULAR HGB CONC 34.4 g/dL (33.0-36.5); MEAN CORPUSCULAR VOLUME 89.6 FL (78-98); MEAN PLATELET VOLUME 9.5 FL (7.4-10.4); PLATELET COUNT 110 X10'3 (140-440); RED BLOOD COUNT 2.21 X10'6 (4.20-5.60); RED CELL DISTRIBUTION WIDTH 18.8 % (11.5-14.5); WHITE BLOOD COUNT 11.4 X10'3 (4.5-11.0)
--- NOTE | 2019-02-18 09:20 | NUR ---
Notified Dr Kohli of the critical H/H just received and was given orders to make her NPO and give a unit of blood. States he will be calling Dr Almazan.
[2019-02-18 09:24] LABS: HEMATOCRIT 19.8 % (35.0-45.0); HEMOGLOBIN 6.8 g/dl (12.0-16.0)
--- NOTE | 2019-02-18 10:30 | NUR ---
Critical care rounds: Discussed pt status with MD and team. Given full systems update. Discussed need for more invasive intervention to resolve bleeding seeing as the H/H continues to drop post EGD. Low UO and slightly hypotensive - given orders for liter bolus as well as the unit of blood about to be transfused. PICC line orders received, unable to draw from extended. Protonix drip running, blood cultures addressed. Made NPO.
[2019-02-18] MEDS ORDERED: normal saline 1000ml 1,000 ML IVB ONE (10:43)
[2019-02-18] MEDS: normal saline 1000ml 1,000 ML IV SCH (10:44)
--- NOTE | 2019-02-18 12:00 | NUR ---
Called Dr Kohli to request pain medicine now that patient is NPO. Orders received for morphine. Pt has 10/10 pain, writhing around in bed, groaning, begging for pain to stop.
[2019-02-18] MEDS: morphine 4 MG/ML inj SYRINge IV PRN ×2 (12:33→19:28)
--- NOTE | 2019-02-18 12:55 | NUR ---
Dr Wagner at bedside discussing procedure with patient.
--- NOTE | 2019-02-18 12:58 | NUR ---
Initial: patient admitted with upper GI bleed, s/p 3 EGD and 1 colonoscopy d/t duodenal ulcer which was cauterized. H/o chronic EtOH, was receiving banana bag. She is on clear liquid diet, day 5. Will follow and monitor for diet advancement. Recommend: 1. Advance diet as medically indicated to regular 2. Weight per rx Addendum: 02/18/19 at [address] Amended: Links added.
[2019-02-18] MEDS ORDERED: LIDOcaine 1%/PF 5ML 10 MG/ML VIAL ONE (13:11)
[2019-02-18] MEDS ORDERED: iohexol 300mg/ml 100ml inj. ONE (13:11)
[2019-02-18] MEDS ORDERED: heparin 1,000 UNITS/NS 500ml 500 ML ONE (13:11)
--- NOTE | 2019-02-18 13:33 | NUR ---
Pt left with IR staff for procedure.
[2019-02-18] MEDS ORDERED: heparin 1,000 UNITS/NS 500ml 500 ML ICATH ONE (13:55)
[2019-02-18] MEDS ORDERED: LIDOcaine 1%/PF 5ML 10 MG/ML VIAL SQ ONE (13:55)
[2019-02-18] MEDS ORDERED: fentaNYL/PF 50MCG/1 ML 2ML syringe IV PRN (13:55)
[2019-02-18] MEDS ORDERED: midazolam 2 mg/2 ml injection IV PRN (13:55)
--- NOTE | 2019-02-18 15:15 | NUR ---
Pt brought back to room by IR staff, who state pt needs to be flat for 4 hours due to starclose. Pt more alert than prior to procedure, seems more comfortable, and is able to answer questions. VSS, monitor shows SR, but still difficult to get a pleth on any of her fingers or ears for O2 sat. Will attempt to warm up extremities and continue to monitor, still on 2L O2 but showing now signs of SOB.
[2019-02-18 16:59] LABS: BASOPHILS % (AUTO) 0.1 % (0-1); EOSINOPHILS % (AUTO) 0.4 % (0-6); HEMOGLOBIN 8.1 g/dl (12.0-16.0); LYMPHOCYTES # (AUTO) 0.7 X10'3 (1.1-4.8); LYMPHOCYTES % (AUTO) 8.4 % (21-51); MEAN CORPUSCULAR HEMOGLOBIN 30.3 PG (27.0-31.0); MEAN CORPUSCULAR HGB CONC 33.7 g/dL (33.0-36.5); MEAN CORPUSCULAR VOLUME 89.8 FL (78-98); MEAN PLATELET VOLUME 9.3 FL (7.4-10.4); MONOCYTES # (AUTO) 0.4 X10'3 (0-0.9); MONOCYTES % (AUTO) 5.3 % (2-12); NEUTROPHILS # (AUTO) 6.9 X10'3 (1.8-7.7); NEUTROPHILS % (AUTO) 85.8 % (42-75); PLATELET COUNT 111 X10'3 (140-440); RED BLOOD COUNT 2.68 X10'6 (4.20-5.60); RED CELL DISTRIBUTION WIDTH 17.1 % (11.5-14.5)
[2019-02-18] MEDS: morphine 2 MG/ML inj. syringe IV PRN (17:42)
--- NOTE | 2019-02-18 18:39 | NUR ---
1830..Patient in room CICU 2011. I have received report from Dionna AKERS and had the opportunity to ask questions and assume patient care.
[2019-02-18 22:08] LABS: BASOPHILS % (AUTO) 0.2 % (0-1); EOSINOPHILS % (AUTO) 0.2 % (0-6); HEMATOCRIT 24.3 % (35.0-45.0); HEMOGLOBIN 8.3 g/dl (12.0-16.0); LYMPHOCYTES # (AUTO) 0.6 X10'3 (1.1-4.8); LYMPHOCYTES % (AUTO) 6.9 % (21-51); MEAN CORPUSCULAR HEMOGLOBIN 30.6 PG (27.0-31.0); MEAN CORPUSCULAR HGB CONC 34.2 g/dL (33.0-36.5); MEAN CORPUSCULAR VOLUME 89.6 FL (78-98); MEAN PLATELET VOLUME 9.5 FL (7.4-10.4); MONOCYTES # (AUTO) 0.6 X10'3 (0-0.9); MONOCYTES % (AUTO) 6.2 % (2-12); NEUTROPHILS # (AUTO) 7.9 X10'3 (1.8-7.7); NEUTROPHILS % (AUTO) 86.5 % (42-75); PLATELET COUNT 112 X10'3 (140-440); RED BLOOD COUNT 2.71 X10'6 (4.20-5.60); RED CELL DISTRIBUTION WIDTH 17.3 % (11.5-14.5); WHITE BLOOD COUNT 9.1 X10'3 (4.5-11.0)
[2019-02-19] VITALS (24 sets, daily range): BP systolic 103–133; BP diastolic 60–88
[2019-02-19] MEDS: piperacillin/tazo 3.375gm/50ml 50 ML IV SCH ×3 (00:35→16:31)
--- NOTE | 2019-02-19 00:38 | NUR ---
1999..Assessment as noted, medicated with morphine for complaints of pain with good effect. Right groin stable, no bleeding or hematoma noted, distal pulses intact.
--- NOTE | 2019-02-19 00:41 | NUR ---
0000..No changes noted.
[2019-02-19] MEDS: pantoprazole 40MG/NS 100ML BAG 100 ML IV SCH ×5 (01:45→20:58)
[2019-02-19 02:14] LABS: BASOPHILS % (AUTO) 0.3 % (0-1); EOSINOPHILS % (AUTO) 0.2 % (0-6); HEMOGLOBIN 8.3 g/dl (12.0-16.0); LYMPHOCYTES # (AUTO) 0.6 X10'3 (1.1-4.8); LYMPHOCYTES % (AUTO) 8.6 % (21-51); MEAN CORPUSCULAR HEMOGLOBIN 30.1 PG (27.0-31.0); MEAN CORPUSCULAR HGB CONC 33.3 g/dL (33.0-36.5); MEAN CORPUSCULAR VOLUME 90.5 FL (78-98); MEAN PLATELET VOLUME 9.4 FL (7.4-10.4); MONOCYTES # (AUTO) 0.6 X10'3 (0-0.9); MONOCYTES % (AUTO) 7.9 % (2-12); PLATELET COUNT 121 X10'3 (140-440); RED BLOOD COUNT 2.76 X10'6 (4.20-5.60); RED CELL DISTRIBUTION WIDTH 17.6 % (11.5-14.5); WHITE BLOOD COUNT 7.2 X10'3 (4.5-11.0)
[2019-02-19 02:25] LABS: ALANINE AMINOTRANSFERASE 26 U/L (12-78); ALBUMIN 1.4 G/DL (3.4-5.0); ALBUMIN/GLOBULIN RATIO 0.6 (1.1-1.5); ALKALINE PHOSPHATASE 64 IU/L (46-116); ANION GAP 7 (8-16); ASPARTATE AMINO TRANSFERASE 42 U/L (10-37); BILIRUBIN,TOTAL 1.5 MG/DL (0.1-1.0); BLOOD UREA NITROGEN 8 MG/DL (7-18); BUN/CREATININE RATIO 11.4 (6.6-38.0); CALCIUM 7.2 MG/DL (8.5-10.1); CHLORIDE 108 MMOL/L (99-107); GLUCOSE 93 MG/DL (70-104); MAGNESIUM 1.1 MG/DL (1.5-2.4); PHOSPHORUS 2.5 MG/DL (2.3-4.5); POTASSIUM 3.5 MMOL/L (3.5-5.1); SODIUM 136 MMOL/L (135-145); TOTAL CARBON DIOXIDE 20.7 MMOL/L (24-32); TOTAL PROTEIN 3.9 G/DL (6.4-8.2); eGFR 89 ML/MIN
--- NOTE | 2019-02-19 04:38 | NUR ---
0400..No changes noted.
[2019-02-19] MEDS: normal saline 1000ml 1,000 ML IV SCH ×2 (06:20→22:40)
--- NOTE | 2019-02-19 06:26 | NUR ---
0625..Problems reprioritized. Patient report given, questions answered & plan of care reviewed with Apolonia AKERS.
[2019-02-19] MEDS: morphine 2 MG/ML inj. syringe IV PRN (07:52)
[2019-02-19] MEDS: folic acid inj. 2 MG, thiamine inj. 100 MG, MVI, adult No.4 with vit. K 10 ML in dextro... IV SCH ×4 (07:52)
[2019-02-19] MEDS: lactobacillus rhamnosus 10,000 MMU CELLS/CAPSULE PO SCH ×2 (07:55→20:58)
[2019-02-19] MEDS: K and/or MAG REPLACEMENT MC SCH (08:00)
[2019-02-19 08:40] LABS: BASOPHILS % (AUTO) 0.1 % (0-1); EOSINOPHILS % (AUTO) 0 % (0-6); HEMOGLOBIN 7.2 g/dl (12.0-16.0); LYMPHOCYTES # (AUTO) 0.6 X10'3 (1.1-4.8); LYMPHOCYTES % (AUTO) 10.6 % (21-51); MEAN CORPUSCULAR HEMOGLOBIN 30.5 PG (27.0-31.0); MEAN CORPUSCULAR HGB CONC 33.6 g/dL (33.0-36.5); MEAN CORPUSCULAR VOLUME 90.9 FL (78-98); MEAN PLATELET VOLUME 9.6 FL (7.4-10.4); MONOCYTES # (AUTO) 0.5 X10'3 (0-0.9); MONOCYTES % (AUTO) 9.1 % (2-12); NEUTROPHILS # (AUTO) 4.2 X10'3 (1.8-7.7); NEUTROPHILS % (AUTO) 80.2 % (42-75); PLATELET COUNT 110 X10'3 (140-440); RED BLOOD COUNT 2.36 X10'6 (4.20-5.60); WHITE BLOOD COUNT 5.2 X10'3 (4.5-11.0)
[2019-02-19 08:55] LABS: HEMATOCRIT 21.4 % (35.0-45.0)
[2019-02-19 12:18] LABS: BASOPHILS % (AUTO) 0.1 % (0-1); EOSINOPHILS % (AUTO) 0.2 % (0-6); HEMATOCRIT 23.6 % (35.0-45.0); LYMPHOCYTES # (AUTO) 0.7 X10'3 (1.1-4.8); LYMPHOCYTES % (AUTO) 10.7 % (21-51); MEAN CORPUSCULAR HEMOGLOBIN 30.9 PG (27.0-31.0); MEAN CORPUSCULAR VOLUME 90.7 FL (78-98); MEAN PLATELET VOLUME 9.5 FL (7.4-10.4); MONOCYTES # (AUTO) 0.6 X10'3 (0-0.9); MONOCYTES % (AUTO) 8.7 % (2-12); NEUTROPHILS # (AUTO) 5.4 X10'3 (1.8-7.7); NEUTROPHILS % (AUTO) 80.3 % (42-75); PLATELET COUNT 119 X10'3 (140-440); RED CELL DISTRIBUTION WIDTH 18.4 % (11.5-14.5); WHITE BLOOD COUNT 6.7 X10'3 (4.5-11.0)
[2019-02-19] MEDS: morphine 4 MG/ML inj SYRINge IV PRN (16:28)
--- NOTE | 2019-02-19 18:19 | NUR ---
Problems reprioritized. Patient report given, questions answered & plan of care reviewed with Venus AKERS.
[2019-02-20] VITALS (15 sets, daily range): BP systolic 94–125; BP diastolic 54–85
[2019-02-20] MEDS: piperacillin/tazo 3.375gm/50ml 50 ML IV SCH ×4 (00:24→23:26)
[2019-02-20] MEDS: morphine 4 MG/ML inj SYRINge IV PRN (00:33)
[2019-02-20] MEDS: pantoprazole 40MG/NS 100ML BAG 100 ML IV SCH ×2 (02:41→09:18)
--- NOTE | 2019-02-20 05:31 | NUR ---
1830....Received report from Dalton Byrd RN.
--- NOTE | 2019-02-20 05:31 | NUR ---
1999...Assessment noted. No active bleeding. Denies pain/discomfort.
--- NOTE | 2019-02-20 05:33 | NUR ---
0000... No changes.Sleeping for long intervals.
--- NOTE | 2019-02-20 05:35 | NUR ---
0400... No changes. Bilateral leg pain relieved with morphine. No distress.
[2019-02-20 06:13] LABS: BASOPHILS % (AUTO) 0.2 % (0-1); EOSINOPHILS % (AUTO) 0.1 % (0-6); HEMATOCRIT 22.6 % (35.0-45.0); HEMOGLOBIN 7.6 g/dl (12.0-16.0); LYMPHOCYTES # (AUTO) 1.1 X10'3 (1.1-4.8); LYMPHOCYTES % (AUTO) 13.2 % (21-51); MEAN CORPUSCULAR HEMOGLOBIN 30.2 PG (27.0-31.0); MEAN CORPUSCULAR HGB CONC 33.5 g/dL (33.0-36.5); MEAN CORPUSCULAR VOLUME 90.1 FL (78-98); MEAN PLATELET VOLUME 9.2 FL (7.4-10.4); MONOCYTES # (AUTO) 0.8 X10'3 (0-0.9); MONOCYTES % (AUTO) 9.1 % (2-12); NEUTROPHILS # (AUTO) 6.7 X10'3 (1.8-7.7); NEUTROPHILS % (AUTO) 77.4 % (42-75); PLATELET COUNT 134 X10'3 (140-440); RED BLOOD COUNT 2.51 X10'6 (4.20-5.60); RED CELL DISTRIBUTION WIDTH 18.6 % (11.5-14.5); WHITE BLOOD COUNT 8.6 X10'3 (4.5-11.0)
[2019-02-20 06:21] LABS: MAGNESIUM 1.1 MG/DL (1.5-2.4); POTASSIUM 3.4 MMOL/L (3.5-5.1)
--- NOTE | 2019-02-20 06:30 | NUR ---
Patient in room CICU 2011. I have received report from Venus Carlos RN and had the opportunity to ask questions and assume patient care.
--- NOTE | 2019-02-20 06:34 | NUR ---
Problems reprioritized. Patient report given, questions answered & plan of care reviewed with Taye RN day shift.
[2019-02-20 07:04] LABS: ANISOCYTOSIS 2+; BURR CELLS 2+; PLATELET ESTIMATE DECREASED; SCHISTOCYTES FEW
[2019-02-20 07:05] LABS: POLYCHROMASIA FEW
[2019-02-20] MEDS: K and/or MAG REPLACEMENT MC SCH (08:00)
[2019-02-20] MEDS: morphine 2 MG/ML inj. syringe IV PRN ×2 (09:01→21:40)
[2019-02-20] MEDS: thiamine 100mg tablet PO SCH (09:19)
[2019-02-20] MEDS: multivitamins, therapeutics tablet PO SCH (09:19)
[2019-02-20] MEDS: lactobacillus rhamnosus 10,000 MMU CELLS/CAPSULE PO SCH ×2 (09:19→21:10)
[2019-02-20] MEDS: folic acid 1mg tablet PO SCH (09:19)
--- NOTE | 2019-02-20 10:20 | NUR ---
1013 URINE CATHETER REMOVED Patient was noted to have urine leaking around catheter. Patient tolerated removal.
[2019-02-20] MEDS ORDERED: potassium Cl 20 mEq SR tablet PO PRN (11:00)
[2019-02-20] MEDS: HYDROcodone/acetaminophen 5mg/325mg tablet PO PRN ×3 (11:32→21:13)
[2019-02-20] MEDS: magnesium Cl slow-release 64mg tablet PO PRN ×2 (11:34→21:10)
[2019-02-20] MEDS: potassium Cl 20 mEq SR tablet PO PRN ×3 (11:34→21:10)
--- NOTE | 2019-02-20 12:59 | NUR ---
reassessment: Pt advanced to full liquids this AM s/p 7 days clears w/ 50-75% avg PO still not meeting needs. S/p gastroduodenal artery embolization per MD note. LBM 02/17 currently w/ abdominal pain. On MVI/thiamin, folic for etoh hx. Ensure Enlive TIDWM added for additional protein/energy needs given extended period on clears. Will continue to monitor for additional protein needs. Recommend: 1. Advance diet as medically indicated to regular 2. ensure enlive TIDWM 3. Weight per rx Addendum: 02/20/19 at [address] Amended: Links added.
[2019-02-20] MEDS: lactose-reduced food (Ensure Enlive) - 237ml bottle PO SCH ×2 (13:00→18:00)
[2019-02-20 16:45] LABS: HEMATOCRIT 27.1 % (35.0-45.0); HEMOGLOBIN 9.1 g/dl (12.0-16.0); MEAN CORPUSCULAR HEMOGLOBIN 29.1 PG (27.0-31.0); MEAN CORPUSCULAR HGB CONC 33.4 g/dL (33.0-36.5); MEAN CORPUSCULAR VOLUME 87.1 FL (78-98); MEAN PLATELET VOLUME 9.2 FL (7.4-10.4); PLATELET COUNT 143 X10'3 (140-440); RED BLOOD COUNT 3.11 X10'6 (4.20-5.60); RED CELL DISTRIBUTION WIDTH 20.1 % (11.5-14.5); WHITE BLOOD COUNT 10.9 X10'3 (4.5-11.0)
--- NOTE | 2019-02-20 17:05 | NUR ---
Report given to Ina AKERS. Addendum: 02/20/19 at 1724 by Alessandra Floyd RN Patient in room 360A. Chart and all belongings sent with patient as well as medications. Ina AKERS there to receive the patient.
--- NOTE | 2019-02-20 17:05 | NUR ---
Patient in room CICU 2011. I have received report from DELPHINE Aparicio and had the opportunity to ask questions and assume patient care.
--- NOTE | 2019-02-20 18:40 | NUR ---
Problems reprioritized. Patient report given, questions answered & plan of care reviewed with DELPHINE Vega.
--- NOTE | 2019-02-20 18:41 | NUR ---
Patient in room [facility] 360. I have received report from DELPHINE Buckley and had the opportunity to ask questions and assume patient care.
[2019-02-20] MEDS: pantoprazole 40mg Tablet.DR PO SCH (21:11)
[2019-02-21] VITALS: BP 91/65
[2019-02-21 06:33] LABS: BASOPHILS % (AUTO) 0.3 % (0-1); EOSINOPHILS # (AUTO) 0.1 X10'3 (0-0.9); EOSINOPHILS % (AUTO) 0.6 % (0-6); HEMATOCRIT 27.3 % (35.0-45.0); LYMPHOCYTES # (AUTO) 1.7 X10'3 (1.1-4.8); LYMPHOCYTES % (AUTO) 15.6 % (21-51); MEAN CORPUSCULAR HEMOGLOBIN 29.3 PG (27.0-31.0); MEAN CORPUSCULAR HGB CONC 33.1 g/dL (33.0-36.5); MEAN CORPUSCULAR VOLUME 88.4 FL (78-98); MEAN PLATELET VOLUME 9.3 FL (7.4-10.4); MONOCYTES % (AUTO) 9.5 % (2-12); NEUTROPHILS # (AUTO) 7.9 X10'3 (1.8-7.7); PLATELET COUNT 165 X10'3 (140-440); RED BLOOD COUNT 3.09 X10'6 (4.20-5.60); WHITE BLOOD COUNT 10.6 X10'3 (4.5-11.0)
--- NOTE | 2019-02-21 06:33 | NUR ---
Problems reprioritized. Patient report given, questions answered & plan of care reviewed with DELPHINE Baltazar.
[2019-02-21 06:46] LABS: POTASSIUM 4.4 MMOL/L (3.5-5.1)
[2019-02-21 07:42] LABS: ANISOCYTOSIS 3+; PLATELET ESTIMATE NORMAL
[2019-02-21 07:43] LABS: LARGE PLATELETS FEW; POIKILOCYTOSIS 1+; POLYCHROMASIA 2+
[2019-02-21 08:00] VITALS: BP 111/67
[2019-02-21] MEDS: K and/or MAG REPLACEMENT MC SCH (08:00)
[2019-02-21] MEDS: piperacillin/tazo 3.375gm/50ml 50 ML IV SCH ×3 (08:11→23:37)
[2019-02-21] MEDS: lactobacillus rhamnosus 10,000 MMU CELLS/CAPSULE PO SCH ×2 (08:12→19:43)
[2019-02-21] MEDS: folic acid 1mg tablet PO SCH (08:12)
[2019-02-21] MEDS: thiamine 100mg tablet PO SCH (08:12)
[2019-02-21] MEDS: pantoprazole 40mg Tablet.DR PO SCH ×2 (08:13→19:43)
[2019-02-21] MEDS: multivitamins, therapeutics tablet PO SCH (08:13)
[2019-02-21] MEDS: HYDROcodone/acetaminophen 5mg/325mg tablet PO PRN ×2 (08:18→19:43)
[2019-02-21] MEDS: lactose-reduced food (Ensure Enlive) - 237ml bottle PO SCH ×3 (08:23→18:05)
[2019-02-21] MEDS ORDERED: magnesium Cl slow-release 64mg tablet PO PRN (09:45)
[2019-02-21] MEDS ORDERED: potassium Cl 40MEQ/NS 500ml 500 ML IV PRN ×2 (09:45)
[2019-02-21] MEDS ORDERED: potassium Cl 20 mEq SR tablet PO PRN ×2 (09:45)
[2019-02-21] MEDS ORDERED: magnesium 4gm in 100ml NS 100 ML IV PRN (09:45)
[2019-02-21 12:00] VITALS: BP 115/67
--- NOTE | 2019-02-21 16:16 | NUR ---
Nutrition consult: Unsure of consult specifics, pt 50% avg heart healthy meals w/ ensure enlive TIDWM added yesterday w/ no severe edema/wounds present and does not qualify for malnutrition. No hx DM. Will continue to monitor. Addendum: 02/21/19 at [address] Amended: Links added.
[2019-02-21 16:53] LABS: MAGNESIUM 1.4 MG/DL (1.5-2.4)
[2019-02-21] MEDS: magnesium Cl slow-release 64mg tablet PO PRN ×2 (17:13→19:42)
--- NOTE | 2019-02-21 18:09 | NUR ---
Problems reprioritized. Patient report given, questions answered & plan of care reviewed with RAMA AKERS.
[2019-02-21 20:00] VITALS: BP 112/71
[2019-02-22] VITALS: BP 105/78
[2019-02-22] MEDS: HYDROcodone/acetaminophen 5mg/325mg tablet PO PRN ×4 (01:44→19:31)
[2019-02-22] MEDS: morphine 4 MG/ML inj SYRINge IV PRN ×2 (02:45→22:46)
[2019-02-22 06:18] LABS: ALANINE AMINOTRANSFERASE 27 U/L (12-78); ALBUMIN 1.3 G/DL (3.4-5.0); ALBUMIN/GLOBULIN RATIO 0.4 (1.1-1.5); ALKALINE PHOSPHATASE 102 IU/L (46-116); ANION GAP 6 (8-16); ASPARTATE AMINO TRANSFERASE 47 U/L (10-37); BLOOD UREA NITROGEN 7 MG/DL (7-18); BUN/CREATININE RATIO 10.8 (6.6-38.0); CALCIUM 7.1 MG/DL (8.5-10.1); CHLORIDE 101 MMOL/L (99-107); CREATININE 0.65 MG/DL (0.40-0.90); GLUCOSE 96 MG/DL (70-104); MAGNESIUM 1.3 MG/DL (1.5-2.4); PHOSPHORUS 1.8 MG/DL (2.3-4.5); POTASSIUM 4.2 MMOL/L (3.5-5.1); SODIUM 129 MMOL/L (135-145); TOTAL CARBON DIOXIDE 22.4 MMOL/L (24-32); TOTAL PROTEIN 4.6 G/DL (6.4-8.2); eGFR > 90 ML/MIN
[2019-02-22 06:21] LABS: BASOPHILS % (AUTO) 0.2 % (0-1); EOSINOPHILS # (AUTO) 0.1 X10'3 (0-0.9); EOSINOPHILS % (AUTO) 0.5 % (0-6); HEMATOCRIT 29.3 % (35.0-45.0); HEMOGLOBIN 9.9 g/dl (12.0-16.0); LYMPHOCYTES # (AUTO) 1.5 X10'3 (1.1-4.8); MEAN CORPUSCULAR HEMOGLOBIN 29.6 PG (27.0-31.0); MEAN CORPUSCULAR HGB CONC 33.7 g/dL (33.0-36.5); MEAN CORPUSCULAR VOLUME 87.9 FL (78-98); MEAN PLATELET VOLUME 9.4 FL (7.4-10.4); MONOCYTES # (AUTO) 0.8 X10'3 (0-0.9); MONOCYTES % (AUTO) 7.4 % (2-12); NEUTROPHILS # (AUTO) 8.4 X10'3 (1.8-7.7); NEUTROPHILS % (AUTO) 77.9 % (42-75); PLATELET COUNT 213 X10'3 (140-440); RED BLOOD COUNT 3.34 X10'6 (4.20-5.60); RED CELL DISTRIBUTION WIDTH 21.6 % (11.5-14.5); WHITE BLOOD COUNT 10.8 X10'3 (4.5-11.0)
--- NOTE | 2019-02-22 06:47 | NUR ---
Patient in room [facility] 360. I have received report from zoey kerr and had the opportunity to ask questions and assume patient care.
--- NOTE | 2019-02-22 06:58 | NUR ---
Problems reprioritized. Patient report given, questions answered & plan of care reviewed with Evy AKERS.
[2019-02-22 07:00] VITALS: BP 94/71
[2019-02-22 07:24] LABS: ANISOCYTOSIS 3+; PLATELET ESTIMATE NORMAL
[2019-02-22 07:25] LABS: LARGE PLATELETS FEW
[2019-02-22 07:26] LABS: MICROCYTOSIS 1+
[2019-02-22] MEDS: K and/or MAG REPLACEMENT MC SCH (08:00)
[2019-02-22] MEDS: lactose-reduced food (Ensure Enlive) - 237ml bottle PO SCH ×4 (08:00→18:25)
[2019-02-22] MEDS: multivitamins, therapeutics tablet PO SCH (08:56)
[2019-02-22] MEDS: folic acid 1mg tablet PO SCH (08:56)
[2019-02-22] MEDS: thiamine 100mg tablet PO SCH (08:57)
[2019-02-22] MEDS: pantoprazole 40mg Tablet.DR PO SCH ×2 (08:57→20:27)
[2019-02-22] MEDS: lactobacillus rhamnosus 10,000 MMU CELLS/CAPSULE PO SCH ×2 (08:57→20:27)
[2019-02-22] MEDS: piperacillin/tazo 3.375gm/50ml 50 ML IV SCH (09:00)
[2019-02-22] MEDS: magnesium Cl slow-release 64mg tablet PO PRN ×2 (09:01→20:28)
[2019-02-22] MEDS ORDERED: sodium phosphate inj. 30 MMOL in dextrose 5%-water 250 ML IV ONE (09:25)
[2019-02-22 11:00] VITALS: BP 107/65
--- NOTE | 2019-02-22 11:50 | NUR ---
F/u: Per RN Nutrition consult r/t bilateral hand anasarca and MD concerns for nutrition-related malnutrition. Qualifies for MD clinical malnutrition per MD note; but from nutrition standpoint given PO 50% avg meals w/ ensure enlraad TID does not meet minimum 2 malnutrition criteria at this time. Will monitor for additional indicators this admit. Addendum: 02/22/19 at [address] Amended: Links added.
--- NOTE | 2019-02-22 18:54 | NUR ---
Problems reprioritized. Patient report given, questions answered & plan of care reviewed with Mery AKERS.
[2019-02-22 20:00] VITALS: BP 120/59
[2019-02-22] MEDS: vancomycin/NS 1 GM ADD-VANTAGE 250 ML IV SCH (22:46)
[2019-02-23] VITALS: BP 109/79
[2019-02-23] MEDS: vancomycin/NS 1 GM ADD-VANTAGE 250 ML IV SCH ×2 (04:56→13:00)
[2019-02-23 05:24] LABS: BASOPHILS % (AUTO) 0.3 % (0-1); EOSINOPHILS % (AUTO) 0.5 % (0-6); HEMATOCRIT 29.4 % (35.0-45.0); HEMOGLOBIN 9.7 g/dl (12.0-16.0); LYMPHOCYTES # (AUTO) 1.3 X10'3 (1.1-4.8); LYMPHOCYTES % (AUTO) 15.3 % (21-51); MEAN CORPUSCULAR HEMOGLOBIN 29.2 PG (27.0-31.0); MEAN CORPUSCULAR HGB CONC 32.9 g/dL (33.0-36.5); MEAN CORPUSCULAR VOLUME 88.5 FL (78-98); MEAN PLATELET VOLUME 8.7 FL (7.4-10.4); MONOCYTES # (AUTO) 0.6 X10'3 (0-0.9); MONOCYTES % (AUTO) 7.2 % (2-12); NEUTROPHILS # (AUTO) 6.3 X10'3 (1.8-7.7); NEUTROPHILS % (AUTO) 76.7 % (42-75); PLATELET COUNT 281 X10'3 (140-440); RED BLOOD COUNT 3.32 X10'6 (4.20-5.60); RED CELL DISTRIBUTION WIDTH 21.7 % (11.5-14.5); WHITE BLOOD COUNT 8.2 X10'3 (4.5-11.0)
[2019-02-23 05:46] LABS: ALANINE AMINOTRANSFERASE 24 U/L (12-78); ALBUMIN 1.1 G/DL (3.4-5.0); ALBUMIN/GLOBULIN RATIO 0.3 (1.1-1.5); ALKALINE PHOSPHATASE 101 IU/L (46-116); ANION GAP 7 (8-16); ASPARTATE AMINO TRANSFERASE 38 U/L (10-37); BILIRUBIN,TOTAL 0.8 MG/DL (0.1-1.0); BLOOD UREA NITROGEN 9 MG/DL (7-18); BUN/CREATININE RATIO 14.8 (6.6-38.0); CALCIUM 6.8 MG/DL (8.5-10.1); CHLORIDE 101 MMOL/L (99-107); CREATININE 0.61 MG/DL (0.40-0.90); GLUCOSE 82 MG/DL (70-104); MAGNESIUM 1.3 MG/DL (1.5-2.4); PHOSPHORUS 2.4 MG/DL (2.3-4.5); SODIUM 127 MMOL/L (135-145); TOTAL CARBON DIOXIDE 19.5 MMOL/L (24-32); TOTAL PROTEIN 4.5 G/DL (6.4-8.2); eGFR > 90 ML/MIN
--- NOTE | 2019-02-23 06:37 | NUR ---
Problems reprioritized. Patient report given, questions answered & plan of care reviewed with Evy AKERS.
--- NOTE | 2019-02-23 06:39 | NUR ---
Patient in room [facility] 360. I have received report from zoey kerr and had the opportunity to ask questions and assume patient care.
[2019-02-23 06:42] LABS: ANISOCYTOSIS 3+; PLATELET ESTIMATE NORMAL; POLYCHROMASIA 1+
[2019-02-23 07:00] VITALS: BP 113/70
[2019-02-23] MEDS: K and/or MAG REPLACEMENT MC SCH (08:00)
[2019-02-23] MEDS: HYDROcodone/acetaminophen 5mg/325mg tablet PO PRN ×2 (08:05→12:25)
[2019-02-23] MEDS: lactobacillus rhamnosus 10,000 MMU CELLS/CAPSULE PO SCH (08:06)
[2019-02-23] MEDS: pantoprazole 40mg Tablet.DR PO SCH (08:06)
[2019-02-23] MEDS: magnesium Cl slow-release 64mg tablet PO PRN (08:06)
[2019-02-23] MEDS: thiamine 100mg tablet PO SCH (08:06)
[2019-02-23] MEDS: folic acid 1mg tablet PO SCH (08:06)
[2019-02-23] MEDS: multivitamins, therapeutics tablet PO SCH (08:06)
[2019-02-23] MEDS: lactose-reduced food (Ensure Enlive) - 237ml bottle PO SCH ×2 (08:07→13:00)
[2019-02-23] MEDS ORDERED: FURO-149 PO (10:45)
[2019-02-23] MEDS ORDERED: PANT40TA4 PO (10:45)
[2019-02-23] MEDS ORDERED: SPIR100T PO (10:45)
[2019-02-23] MEDS ORDERED: AMOX-580 PO (15:28)
[2019-02-23] MEDS ORDERED: LEVO500T2 PO (15:28)
--- NOTE | 2019-02-23 16:03 | NUR ---
patient seen by Dr Vazquez is for discharge. ALl DC instructions and wound supplies given to patient. [facility] bedside delivered to patient . Ride for patient coming from [place] . Ride arrived 1545. Patient appeared to be in stable condition for discharge. DC home via private car to home with boyfriend Cameron
--- NOTE | 2019-02-23 17:32 | NUR ---
patient left without fulfilling two meds Augtoluin and den. Meds called through to [facility] in [place] . voice mail left on patients cell phone. will follow up.
[2019-02-23] MEDS ORDERED: VANCOMYCIN LEVEL IV NR (20:30)
== END 2019-02-23 15:33 | disposition home or self-care (01) | DRG 229 ==
LOC: ER 01:55 → ED HOLD 04:00 → SUR 3N 16:31 → CICU 2S 02-17 22:28 → SUR 3N 02-20 17:42
PROVIDERS: ADMIT Hospitalist; ATTEND Internal Medicine
PROC: 0DB68ZX Excision of Stomach, Via Natural or Artificial Opening Endoscopic, Diagnostic (ICD-10-PCS; principal; 2019-02-13)
PROC: 0DJ08ZZ Inspection of Upper Intestinal Tract, Via Natural or Artificial Opening Endoscopic (ICD-10-PCS; 2019-02-14)
PROC: 30233N1 Transfusion of Nonautologous Red Blood Cells into Peripheral Vein, Percutaneous Approach (ICD-10-PCS; 2019-02-14)
PROC: BW211ZZ Computerized Tomography (CT Scan) of Abdomen and Pelvis using Low Osmolar Contrast (ICD-10-PCS; 2019-02-16)
PROC: 0W3P8ZZ Control Bleeding in Gastrointestinal Tract, Via Natural or Artificial Opening Endoscopic (ICD-10-PCS; 2019-02-17)
PROC: 0DJD8ZZ Inspection of Lower Intestinal Tract, Via Natural or Artificial Opening Endoscopic (ICD-10-PCS; 2019-02-17)
PROC: 04L33DZ Occlusion of Hepatic Artery with Intraluminal Device, Percutaneous Approach (ICD-10-PCS; 2019-02-18)
PROC: B41B1ZZ Fluoroscopy of Other Intra-Abdominal Arteries using Low Osmolar Contrast (ICD-10-PCS; 2019-02-18)
DX: K26.4 Chronic or unspecified duodenal ulcer with hemorrhage (principal); E43 Unspecified severe protein-calorie malnutrition; N17.9 Acute kidney failure, unspecified; I27.20 Pulmonary hypertension, unspecified; E83.42 Hypomagnesemia; K72.90 Hepatic failure, unspecified without coma; E87.1 Hypo-osmolality and hyponatremia; K29.70 Gastritis, unspecified, without bleeding; T39.395A Adverse effect of other nonsteroidal anti-inflammatory drugs [NSAID], initial encounter; L97.919 Non-pressure chronic ulcer of unspecified part of right lower leg with unspecified severity; K25.4 Chronic or unspecified gastric ulcer with hemorrhage; D62 Acute posthemorrhagic anemia; E87.6 Hypokalemia; F15.10 Other stimulant abuse, uncomplicated; I10 Essential (primary) hypertension; B95.2 Enterococcus as the cause of diseases classified elsewhere; I87.2 Venous insufficiency (chronic) (peripheral); F10.239 Alcohol dependence with withdrawal, unspecified; K21.9 Gastro-esophageal reflux disease without esophagitis; K44.9 Diaphragmatic hernia without obstruction or gangrene; L97.929 Non-pressure chronic ulcer of unspecified part of left lower leg with unspecified severity; Z79.899 Other long term (current) drug therapy; Z87.820 Personal history of traumatic brain injury; Z87.891 Personal history of nicotine dependence; Z90.710 Acquired absence of both cervix and uterus; Z98.51 Tubal ligation status; Z71.41 Alcohol abuse counseling and surveillance of alcoholic; Z88.8 Allergy status to other drugs, medicaments and biological substances; Y92.89 Other specified places as the place of occurrence of the external cause; Z86.14 Personal history of Methicillin resistant Staphylococcus aureus infection; Z68.28 Body mass index [BMI] 28.0-28.9, adult; Z91.14 Patient's other noncompliance with medication regimen
CPT/HCPCS: 36245; 36415; 36569; 37244; 43239; 45378; 71045; 74177; 76937; 80053; 81001; 82140; 82330; 82948; 83605; 83735; 84100; 84132; 84145; 84484; 85025; 85027; 85610; 85730; 86885; 86900; 86901; 86920; 87040; 87070; 87077; 87186; 93005; 93306; 93970; 96365; 97110; 97116; 97161; 97530; 99152; 99153; 99285; A4620; C1760; C1769; C1894; C9113; G0269; G0378; J0171; J1200; J1644; J2001; J2250; J2270; J2543; J3010; J3370; J3411; J3480; J3490; J7030; J7060; P9016; Q9967